=== PATIENT | female | born 2000 | race African-American/Black ===

== ENCOUNTER → 2025-02-10 | Day surgery (SDC) | payer OTHER ==
[~2025-02-10] MED LIST: ALLEGRA ALLERGY60 MG PO; BENADRYL25 M1 PO; FENTANYL CITRATE/PF 100MCG/2 ML INJ ONE; GLYCOPYRROLATE INJ 0.2 MG/ML VIAL ONE; LACTATED RINGER'S 1,000 ML ONE; LIDOCAINE HCL 2% LOCAL INJ 5 ML SDV VIAL INJ ONE; METOCLOPRAMIDE HCL 10 MG/2ML VIAL ONE; PROPOFOL IV EMULSION 10 MG/ML 20 ML VIAL ONE
[2025-02-10 12:08] VITALS: TEMP 97.8
[2025-02-10 12:20] VITALS: BP 104/81; PULSE 80; RESP 15; O2SAT 99
== END | disposition home or self-care (01) ==
LOC: OR 09:18
PROVIDERS: ATTEND Internal Medicine Gastroenterology
DX: K21.00 Gastro-esophageal reflux disease with esophagitis, without bleeding (principal); K29.00 Acute gastritis without bleeding; K29.50 Unspecified chronic gastritis without bleeding; B96.81 Helicobacter pylori [H. pylori] as the cause of diseases classified elsewhere; K22.2 Esophageal obstruction; K44.9 Diaphragmatic hernia without obstruction or gangrene; R19.5 Other fecal abnormalities; J30.2 Other seasonal allergic rhinitis; Z71.89 Other specified counseling; Z88.0 Allergy status to penicillin; Z68.30 Body mass index [BMI] 30.0-30.9, adult; Z71.3 Dietary counseling and surveillance; Z87.440 Personal history of urinary (tract) infections
CPT/HCPCS: 43239; 43450; 81025; J2003; J2470; J2704; J2765; J3010; J7121